=== PATIENT | male | born 1950 | race Caucasian/White ===

== ENCOUNTER 2018-04-15 21:30 | Inpatient (IN) | payer MEDICARE, MEDICAID ==
[~2018-04-15] VITALS: Ht 180.3 cm; Wt 85.7 kg
[2018-04-15 22:16] LABS: BASOPHILS % (AUTO) 0.4 % (0.0-2.0); EOSINOPHILS % (AUTO) 3.4 % (1.0-6.0); HEMATOCRIT 38.9 % (41-53); HEMOGLOBIN 13.4 g/dL (13.5-17.5); LYMPHOCYTES # (AUTO) 1.3 K/uL (1.0-4.8); LYMPHOCYTES % (AUTO) 19.7 % (22.0-44.0); MEAN CORPUSCULAR HEMOGLOBIN 30.4 pg (26.0-34.0); MEAN CORPUSCULAR HGB CONC 34.5 G/dL (31.0-37.0); MEAN CORPUSCULAR VOLUME 88 fL (80-100); MONOCYTES # (AUTO) 0.8 K/uL (0.1-1.0); MONOCYTES % (AUTO) 11.7 % (2.0-9.0); NEUTROPHILS # (AUTO) 4.2 K/uL (1.8-7.7); NEUTROPHILS % (AUTO) 64.8 % (40.0-70.0); PLATELET COUNT (AUTO) 149 K/uL (150-450); RED BLOOD CELL COUNT(AUTO) 4.42 MIL/uL (4.50-5.90); RED CELL DISTRIBUTION WIDTH 18.3 % (11.5-14.5)
[2018-04-15 22:25] LABS: ANION GAP 13 mmol/L (8-16); CALCIUM, TOTAL 8.5 mg/dL (8.8-10.5); CARBON DIOXIDE 24 mmol/L (22-29); CHLORIDE 100 mmol/L (98-107); CREATININE 1.08 mg/dL (0.60-1.30); GLOMERULAR FILTR. RATE CALC > 60 mL/min (>60); GLUCOSE,RANDOM 92 mg/dL (70-110); POTASSIUM 3.2 mmol/L (3.5-5.1); SODIUM SERUM 137 mmol/L (136-145); UREA NITROGEN, BLOOD 12 mg/dL (7-18)
[2018-04-15 22:31] LABS: ALANINE AMINOTRANSFERASE 25 U/L (12-78); ALBUMIN 3.1 g/dL (3.4-5.0); ALKALINE PHOSPHATASE 81 U/L (46-116); ASPARTATE AMINOTRANSFERASE 22 U/L (15-37); BILIRUBIN,TOTAL 0.4 mg/dL (0.1-1.0); TOTAL PROTEIN, SERUM 6.6 g/dL (6.4-8.2)
[2018-04-15 22:46] LABS: AMPHET/METH SCREEN,URINE NEGATIVE (NEGATIVE); BARBITURATE SCREEN, URINE POSITIVE (NEGATIVE); BENZODIAZEPINES SCREEN,URINE POSITIVE (NEGATIVE); CANNABINOID SCREEN,URINE NEGATIVE (NEGATIVE); COCAINE SCREEN,URINE NEGATIVE (NEGATIVE); METHADONE SCREEN, URINE NEGATIVE (NEGATIVE); OPIATE SCREEN,URINE NEGATIVE (NEGATIVE)
[2018-04-15 22:47] LABS: PHENCYCLIDINE SCREEN,URINE NEGATIVE (NEGATIVE)
[2018-04-16] MEDS ORDERED: HALOPERIDOL 5 MG TABLET PO PRN (00:30)
[2018-04-16 01:16] LABS: CHOL/HDL RATIO 2.6 (4.2-7.3); CHOLESTEROL 168 mg/dL (131-200); HDL CHOLESTEROL 64 mg/dL (40-60); LDL CHOL (CALC.) 72 mg/dL (0-130); THYROID STIMULATING HORMONE 0.81 uIU/mL (0.36-3.74); TRIGLYCERIDES 160 mg/dL (15-150)
[2018-04-16 01:23] LABS: HEMOGLOBIN A1C 5.2 % (4.5-6.2)
[2018-04-16 02:20] VITALS: BP 104/69
[2018-04-16 02:26] LABS: APPEARANCE,URINE CLEAR (CLEAR); BILIRUBIN,URINE NEGATIVE (NEGATIVE); GLUCOSE, URINE (UA) NEGATIVE (NEGATIVE); KETONES,URINE TRACE mg/dL (NEGATIVE); LEUKOCYTE ESTERASE ,URINE NEGATIVE (NEGATIVE); NITRATE,URINE NEGATIVE (NEGATIVE); OCCULT BLOOD,URINE NEGATIVE (NEGATIVE); PROTEIN,URINE NEGATIVE (NEGATIVE)
[2018-04-16] MEDS: ZOLPIDEM TARTRATE 10 MG TABLET PO PRN ×2 (03:01→20:30)
[2018-04-16] MEDS ORDERED: PNEUMOCOCCAL VACCINE POLYVALENT 0.5 ML VIAL [PPSV23] IM ONE (05:30)
[2018-04-16] MEDS ORDERED: ACETAMINOPHEN 325 MG TABLET PO PRN (07:15)
[2018-04-16 08:05] VITALS: BP 123/56
[2018-04-16] MEDS ORDERED: POTASSIUM CHLORIDE 20 MEQ ER TABLET PO ONE (10:15)
[2018-04-16] MEDS ORDERED: CYANOCOBALAMIN 1,000 MCG/ML VIAL IM ONE (13:00)
[2018-04-16] MEDS ORDERED: HydrOXYzine PAMOATE 50 MG CAPSULE PO PRN (13:00)
[2018-04-16] MEDS ORDERED: LOPERAMIDE HCL 2 MG CAPSULE PO PRN (13:00)
[2018-04-16] MEDS ORDERED: LORazepam 2 MG TABLET PO PRN (13:00)
[2018-04-16] MEDS ORDERED: GuaiFENesin/D-METHORPHAN [SUGAR-FREE] 200-20MG/10 ML SYRUP UDCUP PO PRN (13:00)
[2018-04-16 13:01] VITALS: BP 138/55
[2018-04-16] MEDS: GABAPENTIN 400 MG CAPSULE PO SCH ×2 (13:43→16:27)
[2018-04-16 14:01] VITALS: BP 122/77
[2018-04-16 15:01] VITALS: BP 112/69
[2018-04-16 16:00] VITALS: BP 107/74
[2018-04-16] MEDS: THIAMINE HCL 100 MG TABLET PO SCH (16:24)
[2018-04-16] MEDS: OLANZapine 10 MG TABLET PO SCH (20:30)
[2018-04-17] VITALS (14 sets, daily range): BP systolic 103–160; BP diastolic 56–86
[2018-04-17 06:39] LABS: ANION GAP 6 mmol/L (8-16); CALCIUM, TOTAL 8.4 mg/dL (8.8-10.5); CARBON DIOXIDE 29 mmol/L (22-29); CHLORIDE 105 mmol/L (98-107); CREATINE KINASE, TOTAL ONLY 37 U/L (39-308); CREATININE 0.78 mg/dL (0.60-1.30); GLOMERULAR FILTR. RATE CALC > 60 mL/min (>60); GLUCOSE,RANDOM 92 mg/dL (70-110); POTASSIUM 3.4 mmol/L (3.5-5.1); SODIUM SERUM 140 mmol/L (136-145); UREA NITROGEN, BLOOD 5 mg/dL (7-18)
[2018-04-17] MEDS ORDERED: LORazepam 2 MG TABLET PO PRN (07:00)
[2018-04-17] MEDS: LORazepam 2 MG TABLET PO SCH ×4 (09:22→20:01)
[2018-04-17] MEDS: FOLIC ACID 1 MG TABLET PO SCH (09:22)
[2018-04-17] MEDS: ESCITALOPRAM OXALATE 10 MG TABLET PO SCH (09:22)
[2018-04-17] MEDS: GABAPENTIN 400 MG CAPSULE PO SCH ×3 (09:23→16:48)
[2018-04-17] MEDS: MULTIVITAMINS WITH MINERALS, THERAPEUTIC TABLET PO SCH (09:23)
[2018-04-17] MEDS: THIAMINE HCL 100 MG TABLET PO SCH ×2 (09:23→16:48)
[2018-04-17] MEDS: OXYBUTYNIN CHLORIDE 5 MG TABLET PO SCH (16:48)
[2018-04-17] MEDS: OLANZapine 10 MG TABLET PO SCH (20:01)
[2018-04-18] MEDS: ZOLPIDEM TARTRATE 10 MG TABLET PO PRN ×2 (01:22→20:26)
[2018-04-18 01:28] VITALS: BP 134/81
[2018-04-18 01:30] VITALS: BP 134/81
[2018-04-18 08:20] VITALS: BP 121/92
[2018-04-18] MEDS: ESCITALOPRAM OXALATE 10 MG TABLET PO SCH (08:39)
[2018-04-18] MEDS: OXYBUTYNIN CHLORIDE 5 MG TABLET PO SCH ×2 (08:39→17:00)
[2018-04-18] MEDS: LORazepam 2 MG TABLET PO SCH ×4 (08:39→21:00)
[2018-04-18] MEDS: MULTIVITAMINS WITH MINERALS, THERAPEUTIC TABLET PO SCH (08:39)
[2018-04-18] MEDS: GABAPENTIN 400 MG CAPSULE PO SCH ×3 (08:39→17:00)
[2018-04-18] MEDS: FOLIC ACID 1 MG TABLET PO SCH (08:39)
[2018-04-18] MEDS: THIAMINE HCL 100 MG TABLET PO SCH ×2 (08:39→20:19)
[2018-04-18 19:14] VITALS: BP 126/82
[2018-04-18] MEDS: OLANZapine 10 MG TABLET PO SCH (20:18)
[2018-04-19 00:05] VITALS: BP 136/76
[2018-04-19] MEDS: LORazepam 2 MG TABLET PO PRN (00:12)
[2018-04-19] MEDS ORDERED: LORazepam 1 MG TABLET PO PRN (07:00)
[2018-04-19] MEDS: MULTIVITAMINS WITH MINERALS, THERAPEUTIC TABLET PO SCH (08:18)
[2018-04-19] MEDS: THIAMINE HCL 100 MG TABLET PO SCH ×2 (08:19→18:03)
[2018-04-19] MEDS: GABAPENTIN 400 MG CAPSULE PO SCH ×3 (08:19→18:03)
[2018-04-19] MEDS: FOLIC ACID 1 MG TABLET PO SCH (08:19)
[2018-04-19] MEDS: OXYBUTYNIN CHLORIDE 5 MG TABLET PO SCH ×2 (08:19→18:03)
[2018-04-19] MEDS: ESCITALOPRAM OXALATE 10 MG TABLET PO SCH (08:21)
[2018-04-19] MEDS: LORazepam 1 MG TABLET PO SCH ×4 (08:23→22:28)
[2018-04-19 16:30] VITALS: BP 127/81
[2018-04-19] MEDS: OLANZapine 10 MG TABLET PO SCH (22:28)
[2018-04-20] MEDS: ZOLPIDEM TARTRATE 10 MG TABLET PO PRN (00:27)
[2018-04-20 06:11] VITALS: BP 122/71
[2018-04-20] MEDS ORDERED: LORazepam 1 MG TABLET PO PRN (07:00)
[2018-04-20] MEDS: THIAMINE HCL 100 MG TABLET PO SCH ×2 (08:47→19:47)
[2018-04-20] MEDS: GABAPENTIN 400 MG CAPSULE PO SCH ×3 (08:47→19:47)
[2018-04-20] MEDS: MULTIVITAMINS WITH MINERALS, THERAPEUTIC TABLET PO SCH (08:47)
[2018-04-20] MEDS: FOLIC ACID 1 MG TABLET PO SCH (08:47)
[2018-04-20] MEDS: ESCITALOPRAM OXALATE 10 MG TABLET PO SCH (08:47)
[2018-04-20] MEDS: OXYBUTYNIN CHLORIDE 5 MG TABLET PO SCH ×2 (08:47→19:48)
[2018-04-20 12:35] VITALS: BP 132/79
[2018-04-20 14:01] VITALS: BP 128/76
[2018-04-20] MEDS: IBUPROFEN 600 MG TABLET PO PRN (14:01)
[2018-04-20 15:01] VITALS: BP 126/82
[2018-04-20] MEDS ORDERED: POTASSIUM CHLORIDE 20 MEQ ER TABLET PO ONE (15:30)
[2018-04-20 16:23] VITALS: BP 116/69
[2018-04-20] MEDS: OLANZapine 10 MG TABLET PO SCH (20:06)
[2018-04-21 03:19] VITALS: BP 121/75
[2018-04-21 03:20] VITALS: BP 121/75
[2018-04-21] MEDS: IBUPROFEN 600 MG TABLET PO PRN (03:21)
[2018-04-21 06:43] LABS: ANION GAP 7 mmol/L (8-16); CARBON DIOXIDE 28 mmol/L (22-29); CHLORIDE 105 mmol/L (98-107); CREATINE KINASE, TOTAL ONLY 15 U/L (39-308); CREATININE 0.81 mg/dL (0.60-1.30); GLOMERULAR FILTR. RATE CALC > 60 mL/min (>60); GLUCOSE,RANDOM 91 mg/dL (70-110); POTASSIUM 4.3 mmol/L (3.5-5.1); SODIUM SERUM 140 mmol/L (136-145); UREA NITROGEN, BLOOD 11 mg/dL (7-18)
[2018-04-21] MEDS: GABAPENTIN 400 MG CAPSULE PO SCH ×3 (08:18→16:16)
[2018-04-21] MEDS: ESCITALOPRAM OXALATE 10 MG TABLET PO SCH (08:18)
[2018-04-21] MEDS: OXYBUTYNIN CHLORIDE 5 MG TABLET PO SCH ×2 (08:19→16:16)
[2018-04-21] MEDS: FOLIC ACID 1 MG TABLET PO SCH (08:19)
[2018-04-21] MEDS: MULTIVITAMINS WITH MINERALS, THERAPEUTIC TABLET PO SCH (08:19)
[2018-04-21] MEDS: THIAMINE HCL 100 MG TABLET PO SCH ×2 (08:19→16:16)
[2018-04-21] MEDS: LORazepam 2 MG TABLET PO PRN ×2 (08:20→19:25)
[2018-04-21 08:42] VITALS: BP 101/67
[2018-04-21 16:57] VITALS: BP 121/82
[2018-04-21] MEDS: OLANZapine 10 MG TABLET PO SCH (20:52)
[2018-04-21] MEDS: ZOLPIDEM TARTRATE 10 MG TABLET PO PRN (22:26)
[2018-04-22 01:30] VITALS: BP 124/84
[2018-04-22] MEDS: IBUPROFEN 600 MG TABLET PO PRN ×3 (01:33→22:14)
[2018-04-22] MEDS: ESCITALOPRAM OXALATE 10 MG TABLET PO SCH (09:06)
[2018-04-22] MEDS: OXYBUTYNIN CHLORIDE 5 MG TABLET PO SCH ×2 (09:06→16:17)
[2018-04-22] MEDS: FOLIC ACID 1 MG TABLET PO SCH (09:06)
[2018-04-22] MEDS: THIAMINE HCL 100 MG TABLET PO SCH ×2 (09:06→16:17)
[2018-04-22] MEDS: GABAPENTIN 400 MG CAPSULE PO SCH ×3 (09:06→16:17)
[2018-04-22] MEDS: MULTIVITAMINS WITH MINERALS, THERAPEUTIC TABLET PO SCH (09:06)
[2018-04-22 09:07] VITALS: BP 121/87
[2018-04-22] MEDS: LORazepam 2 MG TABLET PO PRN ×2 (09:07→13:28)
[2018-04-22] MEDS ORDERED: BISACODYL 5 MG EC TABLET PO PRN (11:15)
[2018-04-22] MEDS ORDERED: LACTULOSE 20 GM/30 ML SOLUTION UDCUP PO PRN (11:15)
[2018-04-22] MEDS ORDERED: MAGNESIUM HYDROXIDE SUSPENSION 30 ML UDCUP PO PRN (11:15)
[2018-04-22] MEDS: DOCUSATE SODIUM 250 MG CAPSULE PO SCH (16:17)
[2018-04-22 16:35] VITALS: BP 128/87
[2018-04-22] MEDS: OLANZapine 10 MG TABLET PO SCH (20:07)
[2018-04-22] MEDS: ZOLPIDEM TARTRATE 10 MG TABLET PO PRN (22:08)
[2018-04-22 22:14] VITALS: BP 124/76
[2018-04-23 07:16] VITALS: BP 114/68
[2018-04-23 09:00] VITALS: BP 139/76
[2018-04-23] MEDS: FOLIC ACID 1 MG TABLET PO SCH (09:20)
[2018-04-23] MEDS: THIAMINE HCL 100 MG TABLET PO SCH ×2 (09:20→16:20)
[2018-04-23] MEDS: OXYBUTYNIN CHLORIDE 5 MG TABLET PO SCH ×2 (09:20→16:20)
[2018-04-23] MEDS: ESCITALOPRAM OXALATE 10 MG TABLET PO SCH (09:20)
[2018-04-23] MEDS: DOCUSATE SODIUM 250 MG CAPSULE PO SCH ×2 (09:20→16:21)
[2018-04-23] MEDS: GABAPENTIN 400 MG CAPSULE PO SCH ×3 (09:21→16:20)
[2018-04-23] MEDS: MULTIVITAMINS WITH MINERALS, THERAPEUTIC TABLET PO SCH (09:21)
[2018-04-23 16:27] VITALS: BP 124/76
[2018-04-23] MEDS: OLANZapine 10 MG TABLET PO SCH (20:03)
[2018-04-23] MEDS: ZOLPIDEM TARTRATE 10 MG TABLET PO PRN (21:49)
[2018-04-23] MEDS: IBUPROFEN 600 MG TABLET PO PRN (22:34)
[2018-04-23 22:38] VITALS: BP 110/65
[2018-04-24 00:55] VITALS: BP 130/74
[2018-04-24] MEDS ORDERED: GABA-533 PO (08:19)
[2018-04-24] MEDS ORDERED: ESCI10TA PO (08:19)
[2018-04-24] MEDS ORDERED: OLAN10TA3 PO (08:19)
[2018-04-24] MEDS ORDERED: DOCU250C91 PO (08:21)
[2018-04-24] MEDS ORDERED: OXYB5 PO (08:22)
[2018-04-24] MEDS ORDERED: THIA100T67 PO (08:22)
[2018-04-24] MEDS ORDERED: MULT-1239 PO (08:22)
[2018-04-24] MEDS ORDERED: FOLI1 PO (08:22)
[2018-04-24] MEDS: OXYBUTYNIN CHLORIDE 5 MG TABLET PO SCH (09:12)
[2018-04-24] MEDS: FOLIC ACID 1 MG TABLET PO SCH (09:12)
[2018-04-24] MEDS: DOCUSATE SODIUM 250 MG CAPSULE PO SCH (09:12)
[2018-04-24] MEDS: GABAPENTIN 400 MG CAPSULE PO SCH (09:12)
[2018-04-24] MEDS: THIAMINE HCL 100 MG TABLET PO SCH (09:12)
[2018-04-24] MEDS: ESCITALOPRAM OXALATE 10 MG TABLET PO SCH (09:13)
[2018-04-24] MEDS: MULTIVITAMINS WITH MINERALS, THERAPEUTIC TABLET PO SCH (09:13)
[2018-04-24 09:56] VITALS: BP 126/83
[2018-04-24] MEDS: IBUPROFEN 600 MG TABLET PO PRN (09:56)
== END 2018-04-24 11:00 | disposition home or self-care (01) | DRG 885 ==
LOC: EMS 21:32 → 3EX 04-16 00:32
PROVIDERS: ADMIT Psychiatry & Neurology Psychiatry; ATTEND Psychiatry & Neurology Psychiatry
DX: F25.0 Schizoaffective disorder, bipolar type (principal); R45.851 Suicidal ideations; D64.9 Anemia, unspecified; D69.6 Thrombocytopenia, unspecified; E78.1 Pure hyperglyceridemia; E87.6 Hypokalemia; F43.10 Post-traumatic stress disorder, unspecified; K59.00 Constipation, unspecified; M16.12 Unilateral primary osteoarthritis, left hip; R32 Unspecified urinary incontinence; F32.9 Major depressive disorder, single episode, unspecified; R45.87 Impulsiveness; W18.39XA Other fall on same level, initial encounter; S70.00XA Contusion of unspecified hip, initial encounter; Y90.6 Blood alcohol level of 120-199 mg/100 ml; Z79.899 Other long term (current) drug therapy; Z82.49 Family history of ischemic heart disease and other diseases of the circulatory system; Z91.81 History of falling; Y93.89 Activity, other specified; Y92.89 Other specified places as the place of occurrence of the external cause; Y99.8 Other external cause status
CPT/HCPCS: 73503; 80074; 83036; 83735; 84439; 84443; 97110; 97116; 97162; 97166; 97530; 97535; G0378; G0480; J3420

== ENCOUNTER 2018-08-27 14:44 | Emergency (ER) | payer MEDICAID, MEDICARE ==
[~2018-08-27] VITALS: Ht 177.8 cm; Wt 88.8 kg
[~2018-08-27 14:44] MED LIST: DOCU250C91 PO; ESCI10TA PO; FOLI1 PO; GABA-533 PO; MULT-1239 PO; OLAN10TA3 PO; OXYB5 PO; THIA100T67 PO
[2018-08-27 15:49] LABS: GLUCOSE,POINT OF CARE 90 MG/DL (70-110)
[2018-08-27 16:00] LABS: BASOPHILS % (AUTO) 0.3 % (0.0-2.0); HEMATOCRIT 46.4 % (41-53); HEMOGLOBIN 15.9 g/dL (13.5-17.5); LYMPHOCYTES # (AUTO) 1.8 K/uL (1.0-4.8); LYMPHOCYTES % (AUTO) 20.3 % (22.0-44.0); MEAN CORPUSCULAR HEMOGLOBIN 27.8 pg (26.0-34.0); MEAN CORPUSCULAR HGB CONC 34.2 G/dL (31.0-37.0); MEAN CORPUSCULAR VOLUME 81 fL (80-100); MONOCYTES % (AUTO) 11.6 % (2.0-9.0); NEUTROPHILS # (AUTO) 5.9 K/uL (1.8-7.7); NEUTROPHILS % (AUTO) 66.8 % (40.0-70.0); PLATELET COUNT (AUTO) 193 K/uL (150-450); RED BLOOD CELL COUNT(AUTO) 5.71 MIL/uL (4.50-5.90); RED CELL DISTRIBUTION WIDTH 14.9 % (11.5-14.5)
[2018-08-27 16:10] LABS: ANION GAP 17 mmol/L (8-16); CALCIUM, TOTAL 10.2 mg/dL (8.8-10.5); CARBON DIOXIDE 19 mmol/L (22-29); CHLORIDE 101 mmol/L (98-107); GLOMERULAR FILTR. RATE CALC 60 mL/min (>60); GLUCOSE,RANDOM 88 mg/dL (70-110); POTASSIUM 3.6 mmol/L (3.5-5.1); SODIUM SERUM 137 mmol/L (136-145); UREA NITROGEN, BLOOD 12 mg/dL (7-18)
[2018-08-27 16:13] LABS: INR 1.1 (0.9-1.1)
[2018-08-27 16:16] LABS: ALANINE AMINOTRANSFERASE 19 U/L (12-78); ALBUMIN 3.9 g/dL (3.4-5.0); ALKALINE PHOSPHATASE 84 U/L (46-116); ASPARTATE AMINOTRANSFERASE 17 U/L (15-37); BILIRUBIN,TOTAL 1.7 mg/dL (0.1-1.0); LIPASE 58 U/L (73-393); TOTAL PROTEIN, SERUM 7.6 g/dL (6.4-8.2)
[2018-08-27 16:19] LABS: B-TYPE NATRIURETIC PEPTIDE 16 pg/mL (0-100)
[2018-08-27 16:20] LABS: AMMONIA < 10 umol/L (11-32); TROPONIN I < 0.02 ng/mL (0.00-0.05)
[2018-08-27 16:21] LABS: LACTIC ACID 2.3 mmol/L (0.4-2.0)
[2018-08-27] MEDS ORDERED: SODIUM CHLORIDE 0.9% 1,000 ML IV ONE ×2 (16:30→18:00)
[2018-08-27] MEDS ORDERED: MAGNESIUM SULFATE 1 GM in DEXTROSE 5%-WATER 50 ML IV ONE (18:15)
[2018-08-27 20:44] LABS: APPEARANCE,URINE CLEAR (CLEAR); BILIRUBIN,URINE NEGATIVE (NEGATIVE); GLUCOSE, URINE (UA) NEGATIVE (NEGATIVE); KETONES,URINE >=80 mg/dL (NEGATIVE); LEUKOCYTE ESTERASE ,URINE NEGATIVE (NEGATIVE); NITRATE,URINE NEGATIVE (NEGATIVE); OCCULT BLOOD,URINE NEGATIVE (NEGATIVE); PROTEIN,URINE NEGATIVE (NEGATIVE); UROBILINOGEN,URINE 0.2 mg/dL (<=1.0)
[2018-08-27 20:50] LABS: AMPHET/METH SCREEN,URINE NEGATIVE (NEGATIVE); BARBITURATE SCREEN, URINE NEGATIVE (NEGATIVE); BENZODIAZEPINES SCREEN,URINE NEGATIVE (NEGATIVE); CANNABINOID SCREEN,URINE NEGATIVE (NEGATIVE); COCAINE SCREEN,URINE NEGATIVE (NEGATIVE); METHADONE SCREEN, URINE NEGATIVE (NEGATIVE); OPIATE SCREEN,URINE NEGATIVE (NEGATIVE)
[2018-08-27 20:51] LABS: PHENCYCLIDINE SCREEN,URINE NEGATIVE (NEGATIVE)
[2018-08-27 21:00] VITALS: BP 136/87
[2018-08-27 21:03] LABS: BACTERIA,URINE None Seen /HPF (None Seen); RBC,URINE None Seen /HPF (0-2); SQUAMOUS EPITHELIAL CELL,UR Rare /LPF (None Seen); WBC,URINE 0-2 /HPF (0-5)
== END 2018-08-27 21:26 | disposition home or self-care (01) ==
LOC: EMS 14:44
DX: M25.551 Pain in right hip (principal); R42 Dizziness and giddiness; R45.0 Nervousness; R55 Syncope and collapse; F41.9 Anxiety disorder, unspecified; F32.9 Major depressive disorder, single episode, unspecified; Z79.899 Other long term (current) drug therapy
CPT/HCPCS: 36415; 70450; 71045; 73502; 80053; 80307; 81001; 82140; 82962; 83605; 83690; 83735; 83880; 84484; 85025; 85610; 93005; 96361; 96365; 96366; 99285; J3475; J7060; 82948

== ENCOUNTER 2018-10-09 11:52 | Inpatient (IN) | payer MEDICARE ==
[~2018-10-09] VITALS: Ht 177.8 cm; Wt 94.8 kg
[2018-10-09] MEDS ORDERED: OLAN5TAB2 PO (12:14)
[2018-10-09] MEDS ORDERED: APIX5TAB PO (12:14)
[2018-10-09] MEDS ORDERED: TRAZ-220 PO (12:14)
[2018-10-09] MEDS ORDERED: KDUR20 PO (12:14)
[2018-10-09 12:47] LABS: BASOPHILS % (AUTO) 1.1 % (0.0-2.0); EOSINOPHILS % (AUTO) 2.1 % (1.0-6.0); HEMOGLOBIN 15.5 g/dL (13.5-17.5); LYMPHOCYTES # (AUTO) 1.6 K/uL (1.0-4.8); LYMPHOCYTES % (AUTO) 25.6 % (22.0-44.0); MEAN CORPUSCULAR HEMOGLOBIN 28.5 pg (26.0-34.0); MEAN CORPUSCULAR VOLUME 86 fL (80-100); MONOCYTES # (AUTO) 0.5 K/uL (0.1-1.0); NEUTROPHILS # (AUTO) 3.8 K/uL (1.8-7.7); NEUTROPHILS % (AUTO) 63.2 % (40.0-70.0); PLATELET COUNT (AUTO) 260 K/uL (150-450); RED BLOOD CELL COUNT(AUTO) 5.44 MIL/uL (4.50-5.90); RED CELL DISTRIBUTION WIDTH 15.3 % (11.5-14.5)
[2018-10-09 13:09] LABS: PROTHROMBIN TIME 10.7 SEC (9.4-11.6)
[2018-10-09 13:17] LABS: AMPHET/METH SCREEN,URINE NEGATIVE (NEGATIVE); BARBITURATE SCREEN, URINE NEGATIVE (NEGATIVE); BENZODIAZEPINES SCREEN,URINE NEGATIVE (NEGATIVE); CANNABINOID SCREEN,URINE NEGATIVE (NEGATIVE); COCAINE SCREEN,URINE NEGATIVE (NEGATIVE); METHADONE SCREEN, URINE NEGATIVE (NEGATIVE); OPIATE SCREEN,URINE NEGATIVE (NEGATIVE)
[2018-10-09 13:18] LABS: ANION GAP 13 mmol/L (8-16); CALCIUM, TOTAL 10.2 mg/dL (8.8-10.5); CARBON DIOXIDE 22 mmol/L (22-29); CHLORIDE 104 mmol/L (98-107); CREATININE 0.95 mg/dL (0.60-1.30); GLOMERULAR FILTR. RATE CALC > 60 mL/min (>60); GLUCOSE,RANDOM 91 mg/dL (70-110); SODIUM SERUM 139 mmol/L (136-145); UREA NITROGEN, BLOOD 11 mg/dL (7-18)
[2018-10-09 13:19] LABS: PHENCYCLIDINE SCREEN,URINE NEGATIVE (NEGATIVE)
[2018-10-09 13:23] LABS: ALANINE AMINOTRANSFERASE 16 U/L (12-78); ALBUMIN 3.8 g/dL (3.4-5.0); ALKALINE PHOSPHATASE 78 U/L (46-116); ASPARTATE AMINOTRANSFERASE 12 U/L (15-37); BILIRUBIN,TOTAL 0.6 mg/dL (0.1-1.0); TOTAL PROTEIN, SERUM 7.3 g/dL (6.4-8.2)
[2018-10-09 13:33] LABS: APPEARANCE,URINE CLEAR (CLEAR); BILIRUBIN,URINE NEGATIVE (NEGATIVE); GLUCOSE, URINE (UA) NEGATIVE (NEGATIVE); KETONES,URINE 15 mg/dL (NEGATIVE); LEUKOCYTE ESTERASE ,URINE NEGATIVE (NEGATIVE); NITRATE,URINE NEGATIVE (NEGATIVE); OCCULT BLOOD,URINE NEGATIVE (NEGATIVE); PH,URINE 6.5 (5.0-8.0); PROTEIN,URINE NEGATIVE (NEGATIVE)
[2018-10-09] MEDS ORDERED: HALOPERIDOL 5 MG TABLET PO ONE (14:00)
[2018-10-09] MEDS ORDERED: HALOPERIDOL 5 MG TABLET PO PRN (16:00)
[2018-10-09] MEDS ORDERED: LORazepam 2 MG TABLET PO PRN (16:00)
[2018-10-09 16:57] VITALS: BP 140/81
[2018-10-10] MEDS: OXYBUTYNIN CHLORIDE 5 MG TABLET PO SCH ×2 (08:33→16:38)
[2018-10-10] MEDS: APIXABAN 5 MG TABLET PO SCH ×2 (08:33→16:38)
[2018-10-10] MEDS: GABAPENTIN 400 MG CAPSULE PO SCH ×3 (11:08→16:39)
[2018-10-10] MEDS: ESCITALOPRAM OXALATE 10 MG TABLET PO SCH (11:08)
[2018-10-10 11:11] VITALS: BP 126/70
[2018-10-10 16:01] VITALS: BP 122/78
[2018-10-10] MEDS: OLANZapine 5 MG TABLET PO SCH (20:18)
[2018-10-10] MEDS: TraZODone HCL 100 MG TABLET PO SCH (20:18)
[2018-10-11] MEDS: ESCITALOPRAM OXALATE 10 MG TABLET PO SCH (09:00)
[2018-10-11] MEDS: OXYBUTYNIN CHLORIDE 5 MG TABLET PO SCH ×2 (09:00→17:03)
[2018-10-11] MEDS: GABAPENTIN 400 MG CAPSULE PO SCH ×3 (09:00→17:02)
[2018-10-11 10:00] VITALS: BP 107/78
[2018-10-11] MEDS: APIXABAN 5 MG TABLET PO SCH ×2 (13:33→17:03)
[2018-10-11 16:24] VITALS: BP 96/67
[2018-10-11] MEDS: OLANZapine 5 MG TABLET PO SCH (20:36)
[2018-10-11] MEDS: TraZODone HCL 100 MG TABLET PO SCH (20:36)
[2018-10-12] MEDS: ESCITALOPRAM OXALATE 10 MG TABLET PO SCH (08:28)
[2018-10-12] MEDS: GABAPENTIN 400 MG CAPSULE PO SCH ×3 (08:28→16:05)
[2018-10-12] MEDS: APIXABAN 5 MG TABLET PO SCH ×2 (08:28→16:05)
[2018-10-12] MEDS: OXYBUTYNIN CHLORIDE 5 MG TABLET PO SCH ×2 (08:28→16:05)
[2018-10-12 10:33] VITALS: BP 117/79
[2018-10-12 16:07] VITALS: BP 113/64
[2018-10-12] MEDS: OLANZapine 5 MG TABLET PO SCH (20:02)
[2018-10-12] MEDS: TraZODone HCL 100 MG TABLET PO SCH (20:02)
[2018-10-13 08:00] VITALS: BP 119/66
[2018-10-13] MEDS: GABAPENTIN 400 MG CAPSULE PO SCH ×3 (08:32→16:48)
[2018-10-13] MEDS: OXYBUTYNIN CHLORIDE 5 MG TABLET PO SCH ×2 (08:32→16:48)
[2018-10-13] MEDS: ESCITALOPRAM OXALATE 10 MG TABLET PO SCH (08:32)
[2018-10-13] MEDS: APIXABAN 5 MG TABLET PO SCH ×2 (08:32→16:48)
[2018-10-13 17:50] VITALS: BP 112/67
[2018-10-13] MEDS: OLANZapine 5 MG TABLET PO SCH (20:26)
[2018-10-13] MEDS: TraZODone HCL 100 MG TABLET PO SCH (20:26)
[2018-10-14] MEDS: GABAPENTIN 400 MG CAPSULE PO SCH ×3 (08:35→17:31)
[2018-10-14] MEDS: ESCITALOPRAM OXALATE 10 MG TABLET PO SCH (08:35)
[2018-10-14] MEDS: APIXABAN 5 MG TABLET PO SCH ×2 (08:35→17:31)
[2018-10-14] MEDS: OXYBUTYNIN CHLORIDE 5 MG TABLET PO SCH ×2 (08:35→17:31)
[2018-10-14 09:16] VITALS: BP 157/68
[2018-10-14 16:17] VITALS: BP 144/88
[2018-10-14] MEDS: OLANZapine 5 MG TABLET PO SCH (21:09)
[2018-10-14] MEDS: TraZODone HCL 100 MG TABLET PO SCH (21:09)
[2018-10-15] MEDS: APIXABAN 5 MG TABLET PO SCH ×2 (08:51→16:09)
[2018-10-15] MEDS: OXYBUTYNIN CHLORIDE 5 MG TABLET PO SCH ×2 (08:51→16:08)
[2018-10-15] MEDS: ESCITALOPRAM OXALATE 10 MG TABLET PO SCH (08:51)
[2018-10-15] MEDS: AmLODIPine BESYLATE 2.5 MG TABLET PO SCH (08:51)
[2018-10-15] MEDS: GABAPENTIN 400 MG CAPSULE PO SCH ×3 (08:51→16:09)
[2018-10-15 09:48] VITALS: BP 129/81
[2018-10-15 10:06] VITALS: BP 129/81
[2018-10-15] MEDS: IBUPROFEN 200 MG TABLET PO PRN (10:07)
[2018-10-15 18:01] VITALS: BP 115/70
[2018-10-15] MEDS: TraZODone HCL 100 MG TABLET PO SCH (20:07)
[2018-10-15] MEDS: OLANZapine 5 MG TABLET PO SCH (20:07)
[2018-10-16 08:00] VITALS: BP 136/83
[2018-10-16] MEDS: AmLODIPine BESYLATE 2.5 MG TABLET PO SCH (09:58)
[2018-10-16] MEDS: OXYBUTYNIN CHLORIDE 5 MG TABLET PO SCH ×2 (09:58→16:52)
[2018-10-16] MEDS: GABAPENTIN 400 MG CAPSULE PO SCH ×3 (09:58→16:52)
[2018-10-16] MEDS: ESCITALOPRAM OXALATE 10 MG TABLET PO SCH (09:58)
[2018-10-16] MEDS: APIXABAN 5 MG TABLET PO SCH ×2 (09:58→16:52)
[2018-10-16] MEDS: TraZODone HCL 100 MG TABLET PO SCH (20:16)
[2018-10-16] MEDS: OLANZapine 5 MG TABLET PO SCH (20:21)
[2018-10-16 22:27] VITALS: BP 110/70
[2018-10-17 08:28] VITALS: BP 132/78
[2018-10-17] MEDS: APIXABAN 5 MG TABLET PO SCH ×2 (08:30→17:13)
[2018-10-17] MEDS: AmLODIPine BESYLATE 2.5 MG TABLET PO SCH (08:30)
[2018-10-17] MEDS: ESCITALOPRAM OXALATE 10 MG TABLET PO SCH (08:31)
[2018-10-17] MEDS: OXYBUTYNIN CHLORIDE 5 MG TABLET PO SCH ×2 (08:31→17:13)
[2018-10-17] MEDS: GABAPENTIN 400 MG CAPSULE PO SCH ×3 (08:32→17:13)
[2018-10-17 11:02] VITALS: BP 119/71
[2018-10-17] MEDS: IBUPROFEN 200 MG TABLET PO PRN (11:03)
[2018-10-17] MEDS: OLANZapine 5 MG TABLET PO SCH (20:20)
[2018-10-17] MEDS: TraZODone HCL 100 MG TABLET PO SCH (20:20)
[2018-10-17 21:44] VITALS: BP 130/74
[2018-10-18] MEDS: APIXABAN 5 MG TABLET PO SCH ×2 (09:04→16:19)
[2018-10-18] MEDS: GABAPENTIN 400 MG CAPSULE PO SCH ×3 (09:04→16:19)
[2018-10-18] MEDS: AmLODIPine BESYLATE 2.5 MG TABLET PO SCH (09:04)
[2018-10-18] MEDS: OXYBUTYNIN CHLORIDE 5 MG TABLET PO SCH ×2 (09:04→16:19)
[2018-10-18] MEDS: ESCITALOPRAM OXALATE 10 MG TABLET PO SCH (09:04)
[2018-10-18 10:17] VITALS: BP 142/77
[2018-10-18 16:40] VITALS: BP 115/70
[2018-10-18] MEDS: TraZODone HCL 100 MG TABLET PO SCH (20:07)
[2018-10-18] MEDS: OLANZapine 5 MG TABLET PO SCH (20:07)
[2018-10-19] MEDS: AmLODIPine BESYLATE 2.5 MG TABLET PO SCH (08:33)
[2018-10-19] MEDS: GABAPENTIN 400 MG CAPSULE PO SCH ×3 (08:33→17:00)
[2018-10-19] MEDS: APIXABAN 5 MG TABLET PO SCH ×2 (08:33→17:00)
[2018-10-19] MEDS: OXYBUTYNIN CHLORIDE 5 MG TABLET PO SCH ×2 (08:33→17:00)
[2018-10-19] MEDS: ESCITALOPRAM OXALATE 10 MG TABLET PO SCH (08:33)
[2018-10-19 10:24] VITALS: BP 120/80
[2018-10-19 16:08] VITALS: BP 111/70
[2018-10-19] MEDS: TraZODone HCL 100 MG TABLET PO SCH (20:34)
[2018-10-19] MEDS: OLANZapine 5 MG TABLET PO SCH (20:34)
[2018-10-20 06:48] VITALS: BP 112/69
[2018-10-20] MEDS: GABAPENTIN 400 MG CAPSULE PO SCH ×3 (08:12→17:24)
[2018-10-20] MEDS: APIXABAN 5 MG TABLET PO SCH ×2 (08:12→17:24)
[2018-10-20] MEDS: AmLODIPine BESYLATE 2.5 MG TABLET PO SCH (08:12)
[2018-10-20] MEDS: ESCITALOPRAM OXALATE 10 MG TABLET PO SCH (08:12)
[2018-10-20] MEDS: OXYBUTYNIN CHLORIDE 5 MG TABLET PO SCH ×2 (08:13→17:24)
[2018-10-20 09:08] VITALS: BP 121/81
[2018-10-20 16:19] VITALS: BP 115/67
[2018-10-20] MEDS: TraZODone HCL 100 MG TABLET PO SCH (21:04)
[2018-10-20] MEDS: OLANZapine 5 MG TABLET PO SCH (21:04)
[2018-10-21] MEDS: AmLODIPine BESYLATE 2.5 MG TABLET PO SCH (08:28)
[2018-10-21] MEDS: ESCITALOPRAM OXALATE 10 MG TABLET PO SCH (08:28)
[2018-10-21] MEDS: OXYBUTYNIN CHLORIDE 5 MG TABLET PO SCH ×2 (08:28→16:53)
[2018-10-21] MEDS: APIXABAN 5 MG TABLET PO SCH ×2 (08:28→16:54)
[2018-10-21] MEDS: GABAPENTIN 400 MG CAPSULE PO SCH ×3 (08:29→16:53)
[2018-10-21 10:15] VITALS: BP 110/68
[2018-10-21] MEDS: ACETAMINOPHEN 325 MG TABLET PO PRN (11:52)
[2018-10-21] MEDS ORDERED: BISACODYL 5 MG EC TABLET PO PRN (17:15)
[2018-10-21 18:59] VITALS: BP 113/66
[2018-10-21] MEDS: OLANZapine 5 MG TABLET PO SCH (20:15)
[2018-10-21] MEDS: TraZODone HCL 100 MG TABLET PO SCH (20:15)
[2018-10-22] MEDS: AmLODIPine BESYLATE 2.5 MG TABLET PO SCH (08:15)
[2018-10-22] MEDS: APIXABAN 5 MG TABLET PO SCH ×2 (08:15→16:57)
[2018-10-22] MEDS: OXYBUTYNIN CHLORIDE 5 MG TABLET PO SCH ×2 (08:16→16:57)
[2018-10-22] MEDS: ESCITALOPRAM OXALATE 10 MG TABLET PO SCH (08:16)
[2018-10-22] MEDS: GABAPENTIN 400 MG CAPSULE PO SCH ×3 (08:16→16:57)
[2018-10-22 10:15] VITALS: BP 127/80
[2018-10-22] MEDS ORDERED: ESCITALOPRAM OXALATE 10 MG TABLET PO ONE (11:00)
[2018-10-22 16:44] VITALS: BP 120/78
[2018-10-22] MEDS: OLANZapine 5 MG TABLET PO SCH (20:09)
[2018-10-22] MEDS: TraZODone HCL 100 MG TABLET PO SCH (20:09)
[2018-10-23] MEDS: AmLODIPine BESYLATE 2.5 MG TABLET PO SCH (08:14)
[2018-10-23] MEDS: APIXABAN 5 MG TABLET PO SCH ×2 (08:14→16:50)
[2018-10-23] MEDS: ESCITALOPRAM OXALATE 10 MG TABLET PO SCH (08:14)
[2018-10-23] MEDS: GABAPENTIN 400 MG CAPSULE PO SCH ×3 (08:14→16:50)
[2018-10-23] MEDS: OXYBUTYNIN CHLORIDE 5 MG TABLET PO SCH ×2 (08:14→16:50)
[2018-10-23 08:31] VITALS: BP 152/89
[2018-10-23 16:22] VITALS: BP 126/75
[2018-10-23] MEDS: OLANZapine 5 MG TABLET PO SCH (20:36)
[2018-10-23] MEDS: TraZODone HCL 100 MG TABLET PO SCH (20:37)
[2018-10-24 08:33] VITALS: BP 138/75
[2018-10-24] MEDS: GABAPENTIN 400 MG CAPSULE PO SCH ×3 (08:45→16:25)
[2018-10-24] MEDS: AmLODIPine BESYLATE 2.5 MG TABLET PO SCH (08:46)
[2018-10-24] MEDS: OXYBUTYNIN CHLORIDE 5 MG TABLET PO SCH ×2 (08:46→16:26)
[2018-10-24] MEDS: APIXABAN 5 MG TABLET PO SCH ×2 (08:46→16:26)
[2018-10-24] MEDS: ESCITALOPRAM OXALATE 10 MG TABLET PO SCH (08:47)
[2018-10-24] MEDS: OLANZapine 5 MG TABLET PO SCH (16:25)
[2018-10-24 16:32] VITALS: BP 106/68
[2018-10-24] MEDS: TraZODone HCL 100 MG TABLET PO SCH (20:33)
[2018-10-25] MEDS: ESCITALOPRAM OXALATE 10 MG TABLET PO SCH (08:44)
[2018-10-25] MEDS: OXYBUTYNIN CHLORIDE 5 MG TABLET PO SCH ×2 (08:44→16:39)
[2018-10-25] MEDS: GABAPENTIN 400 MG CAPSULE PO SCH ×3 (08:44→16:39)
[2018-10-25] MEDS: APIXABAN 5 MG TABLET PO SCH ×2 (08:44→16:39)
[2018-10-25] MEDS: AmLODIPine BESYLATE 2.5 MG TABLET PO SCH (08:44)
[2018-10-25] MEDS: OLANZapine 5 MG TABLET PO SCH ×2 (08:45→16:39)
[2018-10-25 08:49] VITALS: BP 142/86
[2018-10-25] MEDS: ACETAMINOPHEN 325 MG TABLET PO PRN (08:51)
[2018-10-25 16:00] VITALS: BP 116/82
[2018-10-25] MEDS: TraZODone HCL 100 MG TABLET PO SCH (20:26)
[2018-10-26 08:00] VITALS: BP 135/83
[2018-10-26] MEDS: APIXABAN 5 MG TABLET PO SCH ×2 (08:33→16:58)
[2018-10-26] MEDS: AmLODIPine BESYLATE 2.5 MG TABLET PO SCH (08:33)
[2018-10-26] MEDS: ESCITALOPRAM OXALATE 10 MG TABLET PO SCH (08:33)
[2018-10-26] MEDS: OLANZapine 5 MG TABLET PO SCH ×2 (08:33→16:58)
[2018-10-26] MEDS: OXYBUTYNIN CHLORIDE 5 MG TABLET PO SCH ×2 (08:33→16:58)
[2018-10-26] MEDS: GABAPENTIN 400 MG CAPSULE PO SCH ×3 (08:33→16:58)
[2018-10-26 16:56] VITALS: BP 119/78
[2018-10-26] MEDS: TraZODone HCL 100 MG TABLET PO SCH (21:10)
[2018-10-26] MEDS: ZOLPIDEM TARTRATE 10 MG TABLET PO PRN (21:11)
[2018-10-27 08:00] VITALS: BP 120/70
[2018-10-27] MEDS: OXYBUTYNIN CHLORIDE 5 MG TABLET PO SCH ×2 (08:07→16:40)
[2018-10-27] MEDS: GABAPENTIN 400 MG CAPSULE PO SCH ×3 (08:07→16:40)
[2018-10-27] MEDS: OLANZapine 5 MG TABLET PO SCH ×2 (08:07→16:40)
[2018-10-27] MEDS: ESCITALOPRAM OXALATE 10 MG TABLET PO SCH (08:07)
[2018-10-27] MEDS: AmLODIPine BESYLATE 2.5 MG TABLET PO SCH (08:07)
[2018-10-27] MEDS: APIXABAN 5 MG TABLET PO SCH ×2 (08:07→16:40)
[2018-10-27 17:00] VITALS: BP 136/79
[2018-10-27] MEDS: TraZODone HCL 100 MG TABLET PO SCH (20:57)
[2018-10-27] MEDS: ZOLPIDEM TARTRATE 10 MG TABLET PO PRN (20:57)
[2018-10-28] MEDS: ESCITALOPRAM OXALATE 10 MG TABLET PO SCH (08:55)
[2018-10-28] MEDS: APIXABAN 5 MG TABLET PO SCH ×2 (08:55→16:08)
[2018-10-28] MEDS: GABAPENTIN 400 MG CAPSULE PO SCH ×3 (08:55→16:08)
[2018-10-28] MEDS: AmLODIPine BESYLATE 2.5 MG TABLET PO SCH (08:56)
[2018-10-28] MEDS: OXYBUTYNIN CHLORIDE 5 MG TABLET PO SCH ×2 (08:56→16:08)
[2018-10-28] MEDS: OLANZapine 5 MG TABLET PO SCH ×2 (08:57→16:08)
[2018-10-28 12:52] VITALS: BP 139/81
[2018-10-28 19:09] VITALS: BP 125/77
[2018-10-28] MEDS: TraZODone HCL 100 MG TABLET PO SCH (20:20)
[2018-10-29 05:51] LABS: BASOPHILS % (AUTO) 0.5 % (0.0-2.0); EOSINOPHILS % (AUTO) 4.4 % (1.0-6.0); HEMATOCRIT 42.4 % (41-53); LYMPHOCYTES # (AUTO) 1.6 K/uL (1.0-4.8); LYMPHOCYTES % (AUTO) 33.9 % (22.0-44.0); MEAN CORPUSCULAR HEMOGLOBIN 28.7 pg (26.0-34.0); MEAN CORPUSCULAR VOLUME 87 fL (80-100); MONOCYTES # (AUTO) 0.5 K/uL (0.1-1.0); MONOCYTES % (AUTO) 9.9 % (2.0-9.0); NEUTROPHILS # (AUTO) 2.5 K/uL (1.8-7.7); NEUTROPHILS % (AUTO) 51.3 % (40.0-70.0); PLATELET COUNT (AUTO) 173 K/uL (150-450); RED BLOOD CELL COUNT(AUTO) 4.88 MIL/uL (4.50-5.90); RED CELL DISTRIBUTION WIDTH 14.6 % (11.5-14.5)
[2018-10-29 06:07] LABS: ALANINE AMINOTRANSFERASE 17 U/L (12-78); ALBUMIN 2.9 g/dL (3.4-5.0); ALKALINE PHOSPHATASE 73 U/L (46-116); ANION GAP 6 mmol/L (8-16); ASPARTATE AMINOTRANSFERASE 12 U/L (15-37); BILIRUBIN,TOTAL 0.2 mg/dL (0.1-1.0); CALCIUM, TOTAL 9.5 mg/dL (8.8-10.5); CARBON DIOXIDE 29 mmol/L (22-29); CHLORIDE 108 mmol/L (98-107); CREATINE KINASE, TOTAL ONLY 37 U/L (39-308); CREATININE 0.94 mg/dL (0.60-1.30); GLOMERULAR FILTR. RATE CALC > 60 mL/min (>60); GLUCOSE,RANDOM 93 mg/dL (70-110); SODIUM SERUM 143 mmol/L (136-145); TOTAL PROTEIN, SERUM 5.9 g/dL (6.4-8.2); UREA NITROGEN, BLOOD 15 mg/dL (7-18)
[2018-10-29 09:00] VITALS: BP 115/72
[2018-10-29] MEDS: GABAPENTIN 400 MG CAPSULE PO SCH ×3 (09:31→16:09)
[2018-10-29] MEDS: APIXABAN 5 MG TABLET PO SCH ×2 (09:32→16:09)
[2018-10-29] MEDS: OLANZapine 5 MG TABLET PO SCH ×2 (09:32→16:09)
[2018-10-29] MEDS: OXYBUTYNIN CHLORIDE 5 MG TABLET PO SCH ×2 (09:33→16:09)
[2018-10-29] MEDS: AmLODIPine BESYLATE 2.5 MG TABLET PO SCH (09:33)
[2018-10-29] MEDS: ESCITALOPRAM OXALATE 10 MG TABLET PO SCH (09:34)
[2018-10-29 16:30] VITALS: BP 118/74
[2018-10-29] MEDS: TraZODone HCL 100 MG TABLET PO SCH (20:20)
[2018-10-30 06:29] LABS: BASOPHILS % (AUTO) 0.3 % (0.0-2.0); EOSINOPHILS % (AUTO) 4.6 % (1.0-6.0); HEMATOCRIT 42.3 % (41-53); LYMPHOCYTES # (AUTO) 1.5 K/uL (1.0-4.8); LYMPHOCYTES % (AUTO) 31.8 % (22.0-44.0); MEAN CORPUSCULAR HEMOGLOBIN 28.6 pg (26.0-34.0); MEAN CORPUSCULAR HGB CONC 33.1 G/dL (31.0-37.0); MEAN CORPUSCULAR VOLUME 87 fL (80-100); MONOCYTES # (AUTO) 0.5 K/uL (0.1-1.0); NEUTROPHILS # (AUTO) 2.5 K/uL (1.8-7.7); NEUTROPHILS % (AUTO) 53.3 % (40.0-70.0); PLATELET COUNT (AUTO) 180 K/uL (150-450); RED BLOOD CELL COUNT(AUTO) 4.88 MIL/uL (4.50-5.90); RED CELL DISTRIBUTION WIDTH 14.6 % (11.5-14.5)
[2018-10-30] MEDS: APIXABAN 5 MG TABLET PO SCH (09:23)
[2018-10-30] MEDS: OXYBUTYNIN CHLORIDE 5 MG TABLET PO SCH (09:23)
[2018-10-30] MEDS: AmLODIPine BESYLATE 2.5 MG TABLET PO SCH (09:23)
[2018-10-30] MEDS: OLANZapine 5 MG TABLET PO SCH (09:23)
[2018-10-30] MEDS: ESCITALOPRAM OXALATE 10 MG TABLET PO SCH (09:23)
[2018-10-30] MEDS: GABAPENTIN 400 MG CAPSULE PO SCH ×2 (09:24→12:46)
[2018-10-30] MEDS ORDERED: AMLO2.5T4 PO (10:59)
[2018-10-30] MEDS: ACETAMINOPHEN 325 MG TABLET PO PRN (12:47)
[2018-10-30 12:48] VITALS: BP 125/93
[2018-10-31] MEDS ORDERED: ESCITALOPRAM OXALATE 20 MG TABLET PO SCH (09:00)
== END 2018-10-30 15:20 | disposition home or self-care (01) | DRG 885 ==
LOC: EMS 11:53 → 3EI 16:23 → 3EX 16:24
PROVIDERS: ADMIT Psychiatry & Neurology Child & Adolescent Psychiatry; ATTEND Psychiatry & Neurology Child & Adolescent Psychiatry
DX: F20.0 Paranoid schizophrenia (principal); R45.851 Suicidal ideations; F32.9 Major depressive disorder, single episode, unspecified; F43.10 Post-traumatic stress disorder, unspecified; I25.10 Atherosclerotic heart disease of native coronary artery without angina pectoris; M17.0 Bilateral primary osteoarthritis of knee; M16.0 Bilateral primary osteoarthritis of hip; E87.6 Hypokalemia; R26.9 Unspecified abnormalities of gait and mobility; K29.70 Gastritis, unspecified, without bleeding; K59.00 Constipation, unspecified; I10 Essential (primary) hypertension; R32 Unspecified urinary incontinence; E88.09 Other disorders of plasma-protein metabolism, not elsewhere classified; F41.0 Panic disorder [episodic paroxysmal anxiety]; G62.9 Polyneuropathy, unspecified; Z79.01 Long term (current) use of anticoagulants; Z79.899 Other long term (current) drug therapy; Z82.49 Family history of ischemic heart disease and other diseases of the circulatory system; Z91.14 Patient's other noncompliance with medication regimen; Z91.19 Patient's noncompliance with other medical treatment and regimen; Z91.5 Personal history of self-harm
CPT/HCPCS: 83735; 93306; 93970; G0378; G0480